=== PATIENT | female | born 1960 | race American Indian/Alaskan Native ===

== ENCOUNTER 2019-07-21 18:09 | Emergency (ER) | payer OTHER ==
[2019-07-21 18:36] VITALS: BP 164/83
--- NOTE | 2019-07-21 19:20 | XRay Report ---
RIGHT ANKLE 4 VIEW(S) INDICATION / CLINICAL INFORMATION: pain r/t injury COMPARISON: None available. FINDINGS: BONES / JOINT(S): No acute fracture or subluxation. SOFT TISSUES: No significant abnormality. Signer Name: Lakhwinder Porter MD Signed: 07/21/2019 7:16 PM Workstation Name: [id number]
--- NOTE | 2019-07-21 21:52 | Emergency Department Report ---
ED Extremity Problem HPI - General Chief complaint: Extremity Injury, Lower Stated complaint: RT FOOT PAIN Time Seen by Provider: 07/21/19 21:26 Source: patient Mode of arrival: Ambulatory Limitations: Physical Limitation - History of Present Illness Initial comments: pt is a 59 yo female who presents to the ED with c/o right heel and ankle pain that began a week ago. she states she also has pain in her arch when she first steps down. she denies any fall or injury. she states she has noticed a small amount of edema. she denies any numbness or weakness. she has been ambulatory. she denies any prior injury. she has a PMHx of MM, HTN, pre diabetes, and depression. - Related Data Previous Rx's Medication Instructions Recorded Last Taken Type Naproxen [Naprosyn TAB] 500 mg PO BID PRN #14 tablet 07/21/19 Unknown Rx Allergies Allergy/AdvReac Type Severity Reaction Status Date / Time acetaminophen Allergy Nausea Verified 02/14/19 17:33 [From Darvocet-N] codeine Allergy Nausea Verified 02/14/19 17:33 iodine Allergy Hives Verified 02/14/19 17:33 propoxyphene Allergy Nausea Verified 02/14/19 17:33 [From Darvocet-N] shellfish derived Allergy Itching Verified 02/14/19 17:33 ED Review of Systems ROS: Stated complaint: RT FOOT PAIN Other details as noted in HPI Comment: All other systems reviewed and negative ED Past Medical Hx - Past Medical History Hx Hypertension: Yes Hx Diabetes: Yes (BORDEERLINE) Hx Psychiatric Treatment: Yes (DEPRESSION) Additional medical history: MULTI MYELOMA - Surgical History Additional Surgical History: STEM CELL TRANSPLANT - Social History Smoking Status: Never Smoker Substance Use Type: None - Medications Home Medications: Home Medications Medication Instructions Recorded Confirmed Last Taken Type Naproxen [Naprosyn TAB] 500 mg PO BID PRN #14 tablet 07/21/19 Unknown Rx ED Physical Exam - General Limitations: Physical Limitation General appearance: alert, in no apparent distress - Head Head exam: Present: atraumatic, normocephalic - Eye Eye exam: Present: normal appearance - ENT ENT exam: Present: mucous membranes moist - Extremities Exam Extremities exam: Present: other (mild TTP over the right ankle behind the medial malleolus, achiles tendon is intact, mild TTP over the right heel, no deformities, no ecchymosis, FROM of the right ankle and foot without dificulty, neurovascularly intact) - Neurological Exam Neurological exam: Present: alert, oriented X3 - Psychiatric Psychiatric exam: Present: normal affect, normal mood - Skin Skin exam: Present: warm, dry, intact ED Course Vital Signs 07/21/19 07/21/19 18:33 22:05 Temperature 97.6 F Pulse Rate 98 H 64 Respiratory 18 17 Rate Blood Pressure 164/83 O2 Sat by Pulse 97 97 Oximetry ED Medical Decision Making - Radiology Data Radiology results: report reviewed RIGHT ANKLE 4 VIEW(S) INDICATION / CLINICAL INFORMATION: pain r/t injury COMPARISON: None available. FINDINGS: BONES / JOINT(S): No acute fracture or subluxation. SOFT TISSUES: No significant abnormality. Signer Name: Lakhwinder Porter MD Signed: 07/21/2019 7:16 PM Workstation Name: [id number] Transcribed By: NANCY Dictated By: Lakhwinder Porter MD Electronically Authenticated By: Lakhwinder Porter MD Signed Date/Time: 07/21/191915 - Medical Decision Making pt is a 59 yo female who presents to the ED with c/o right heel and ankle pain that began a week ago. she states she also has pain in her arch when she first steps down. she denies any fall or injury. she states she has noticed a small amount of edema. she denies any numbness or weakness. she has been ambulatory. she denies any prior injury. she has a PMHx of MM, HTN, pre diabetes, and depression. VSS. on exam: mild TTP over the right ankle behind the medial malleolus, achiles tendon is intact, mild TTP over the right heel, no deformities, no ecchymosis, FROM of the right ankle and foot without dificulty, neurovascularly intact. Symptoms and examination could be consistent with plantar fasciitis. XR of the right ankle: No significant abnormality. Discussed all results with patient and answer questions. Patient given prescription for naproxen and Valente wrap placed on the right ankle. also discussed with patient about shoe inserts. advised pt to please take medication as prescribed as needed. follow up with an orthopedic doctor in the next 2-3 days. may use ice for 15 min at a time, elevation of the leg, and rest. may wear valente wrap as needed do not wear at night while sleeping and do not wear too tightly. return to the emergency room for any new or worsening symptoms. - Differential Diagnosis strain, sprain, arthritis, DJD, plantar fasciitis, tendonitis, bone spur Critical care attestation.: If time is entered above; I have spent that time in minutes in the direct care of this critically ill patient, excluding procedure time. ED Disposition Clinical Impression: Pain of right heel Right ankle pain Qualifiers: Chronicity: acute Qualified Code(s): M25.571 - Pain in right ankle and joints of right foot Disposition: DC-01 TO HOME OR SELFCARE Is pt being admited?: No Does the pt Need Aspirin: No Condition: Stable Instructions: Plantar Fasciitis (ED), Arthralgia (ED) Additional Instructions: please take medication as prescribed as needed. follow up with an orthopedic doctor in the next 2-3 days. may use ice for 15 min at a time, elevation of the leg, and rest. may wear valente wrap as needed do not wear at night while sleeping and do not wear too tightly. return to the emergency room for any new or worsening symptoms. Prescriptions: Naproxen [Naprosyn TAB] 500 mg PO BID PRN #14 tablet PRN Reason: pain Referrals: JAN BRAND MD [Staff Physician] - 2-3 Days Time of Disposition: 21:54 Print Language: GIBRALTAR[place]
== END 2019-07-21 22:05 | disposition home or self-care (01) ==
LOC: ED 18:09
DX: M25.571 Pain in right ankle and joints of right foot (principal); I10 Essential (primary) hypertension; E11.9 Type 2 diabetes mellitus without complications; F32.9 Major depressive disorder, single episode, unspecified; Z79.899 Other long term (current) drug therapy; Z91.013 Allergy to seafood; Z91.041 Radiographic dye allergy status; Z88.5 Allergy status to narcotic agent
CPT/HCPCS: 99283